=== PATIENT | female | born 1990 | race Caucasian/White ===

== ENCOUNTER 2017-02-24 07:28 | Day surgery (SDC) | payer OTHER ==
[2017-02-23 14:04] VITALS: BMI 28.5
--- NOTE | 2017-02-23 18:47 | HP ---
DATE OF ADMISSION: 02/24/2017 HISTORY OF PRESENT ILLNESS: A 25-year-old female patient with a long history of recurrent middle ear infections, having undergone right ear surgery a number of years ago, seen in the office in September 2016 for evaluation of left ear infection and noted otorrhea and treated with ear drops, now resolved. Perforation persists. The patient now admitted to the hospital for left ear surgery. Past medical history, allergies, daily medications, medical conditions, clotting disorders, habits, family history, review of systems are negative. PAST MEDICAL HISTORY: Ear tube surgery in 1993. Mastoidectomy surgery in 2002. PHYSICAL EXAMINATION: GENERAL APPEARANCE: Well-developed, well-nourished female patient in no acute distress. HEENT: Head is normocephalic. No masses or deformities. Ears and tympanic membranes, there is a right radical mastoidectomy cavity, there is a left tympanic membrane perforation. Nose clear. Oropharynx clear. NECK: No masses or adenopathy. CHEST: Clear to P and A. HEART: Regular sinus rhythm without murmur. ABDOMEN: Soft. Bowel sounds normal. No mass or megaly. EXTREMITIES: Full range of motion without pain. NEUROLOGIC: Physiologic. PELVIC AND RECTAL: Not done. IMPRESSION: Chronic left otitis perforata. RECOMMENDATIONS: Admit for surgery. Dictated By: Bob Palma MD /[email or web address] /Document#: [id number]
[~2017-02-24] VITALS: Ht 149.9 cm; Wt 67.4 kg
[2017-02-24] VITALS (9 sets, daily range): BP systolic 107–131; BP diastolic 62–76; PULSE 46–77; RESP 14–26; Ht 149.9 cm; Wt 67.4 kg
[~2017-02-24 07:28] MED LIST: CEFAZOLIN 1 GM INJ ONE; GLYCOPYRROLATE 0.4 MG INJ ONE; NEOSTIGMINE 3 MG/3 ML SYRINGE ONE
[2017-02-24] MEDS ORDERED: OXYCODONE/ACETAMINOPHEN (5/325) TAB PO PRN ×2 (09:30)
[2017-02-24] MEDS ORDERED: KETOROLAC 30 MG INJ IV PRN (09:30)
[2017-02-24] MEDS ORDERED: EPHEDrine SULFATE 50 MG/5 ML SYG IV PRN (09:30)
[2017-02-24] MEDS ORDERED: MEPERIDINE 25 MG INJ IV PRN (09:30)
[2017-02-24] MEDS ORDERED: DIPHENHYDRAMINE 50 MG INJ IV PRN (09:30)
[2017-02-24] MEDS ORDERED: HYDROmorphONE (0.2 MG/ML) 10ML SYG IV PRN ×3 (09:30)
[2017-02-24] MEDS ORDERED: hydrALAzine 20 MG INJ IV PRN (09:30)
[2017-02-24] MEDS ORDERED: ONDANSETRON 4 MG INJ IV PRN (09:30)
[2017-02-24] MEDS ORDERED: LABETALOL HCL 20MG INJ IV PRN (09:30)
[2017-02-24] MEDS ORDERED: FENTAnyl 50 MCG/ML VIAL IV PRN ×3 (09:30)
[2017-02-24] MEDS ORDERED: LIDOCAINE 2%/EPI 30 ML INJ ONE (09:35)
[2017-02-24] MEDS ORDERED: GELATIN SIZE 100 SPONGE ONE (09:35)
[2017-02-24] MEDS ORDERED: EPINEPHrine 1 MG INJ ONE (09:35)
[2017-02-24] MEDS ORDERED: PROPOFOL 100 ML ONE (09:45)
[2017-02-24] MEDS ORDERED: MIDAZOLAM 1 MG/ML 2 ML INJ ONE (09:47)
[2017-02-24] MEDS ORDERED: DEXAMETHASONE 4 MG/ML 1 ML INJ ONE (10:15)
[2017-02-24] MEDS ORDERED: ONDANSETRON 4 MG INJ ONE (10:16)
[2017-02-24] MEDS ORDERED: ROCURONIUM 50 MG INJ ONE (10:16)
[2017-02-24] MEDS ORDERED: LIDOCAINE 2% (SDV) 5 ML INJ ONE (10:16)
--- NOTE | 2017-02-24 11:05 | SIPON ---
Date/Time of Note Date/Time of Note DATE: 02/24/17 TIME: 11:03 PAXTON LAWRENCE MD Feb 24, 2017 11:05
[2017-02-24] MEDS ORDERED: HYDROCODONE/APAP (7.5/325) TAB PO PRN (12:00)
--- NOTE | 2017-02-24 16:15 | OPR ---
DATE OF OPERATION: 02/24/2017 PREOPERATIVE DIAGNOSIS: Left otitis perforata. POSTOPERATIVE DIAGNOSIS: Left otitis perforata. PROCEDURE PERFORMED: Left tympanoplasty. OPERATIVE PROCEDURE: The patient was brought to the operating room under parental sedation, general anesthesia by LMA. Left ear prepped and draped in the usual manner for ear surgery. The ear canal was cleaned of cerumen. A posterior inferior central tympanic membrane perforation was noted. The margins of the perforation were debrided with a Puri needle. The middle ear was then filled with dry Gelfoam. An incision was then made along the posterior aspect of the tragal cartilage down to the perichondrium, which was elevated from the cartilage, excised and set aside for use as a graft. The incision was closed with interrupted 3-0 silk suture. The graft was then brought into the operative field and placed as a medial graft to cover all margins of the perforation. The ear canal was filled with dry Gelfoam. A light cotton dressing was applied and the procedure terminated. The patient was awakened in the operating room, and returned to recovery in excellent condition. ESTIMATED BLOOD LOSS: Nil. COMPLICATIONS: None. Dictated By: Bob Palma MD /[email or web address] /Document#: [id number]
== END 2017-02-24 12:10 | disposition home or self-care (01) ==
LOC: SDS 07:28
PROVIDERS: ATTEND Otolaryngology Otolaryngology/Facial Plastic Surgery
DX: H72.92 Unspecified perforation of tympanic membrane, left ear (principal); Z88.6 Allergy status to analgesic agent; Z91.040 Latex allergy status
CPT/HCPCS: 69631; 84703; J0171; J0690; J1100; J2250; J2405; J2710; J3010; Z7512; Z7610